=== PATIENT | female | born 1980 | race Caucasian/White ===

== ENCOUNTER 2021-11-29 13:08 | Outpatient (CLI) | payer OTHER, SELFPAY ==
--- OUTSIDE RECORDS SUMMARY | 2021-11-29 13:10 | XMS_ITS | Encounter Summary ---
:1980 Author Organization [facility] Address [address] [place] [address] Care Team Providers Name Role Phone Unavailable Primary Care Provider Unavailable Encounter Details Date Type Department Care Team Description 12/19/2013 Hospital Encounter HX RST LABOR&DELIVERY Hank Conley NURS M.D. [address] [place] [address] (Wo rk) Social History Tobacco Use Types Packs/Day Years Used Date Smoking Tobacco: Never Assessed Sex Assigned at Date Recorded Not on file documented as of this encounter Plan of Treatment Not on filedocumented as of this encounter Visit Diagnoses Not on filedocumented in this encounter
--- OUTSIDE RECORDS SUMMARY | 2021-11-29 13:10 | XMS_ITS | Encounter Summary ---
:1980 Author Organization [facility] Address [address] [place] [address] Care Team Providers Name Role Phone Unavailable Primary Care Provider Unavailable Encounter Details Date Type Department Care Team Description 06/16/2020 Admin Visit Department of Family Medicine in [place], [place] [address] [place], [place] [address] Social History Tobacco Use Types Packs/Day Years Used Date Smoking Tobacco: Never Sex Assigned at Date Recorded Not on file documented as of this encounter Plan of Treatment Not on filedocumented as of this encounter Visit Diagnoses Not on filedocumented in this encounter Additional Health Concerns Infection Onset Date Last Indicated Resolved Time COVID19 Pending 06/16/2020 06/16/2020 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
--- OUTSIDE RECORDS SUMMARY | 2021-11-29 13:10 | XMS_ITS | Encounter Summary ---
:1980 Author Organization [facility] Address [address] [place] [address] Care Team Providers Name Role Phone Unavailable Primary Care Provider Unavailable Encounter Details Date Type Department Care Team Description 11/17/2013 Hospital Encounter HX NO MAPPING Social History Tobacco Use Types Packs/Day Years Used Date Smoking Tobacco: Never Assessed Sex Assigned at Date Recorded Not on file documented as of this encounter Plan of Treatment Not on filedocumented as of this encounter Visit Diagnoses Not on filedocumented in this encounter
--- OUTSIDE RECORDS SUMMARY | 2021-11-29 13:10 | XMS_ITS | Encounter Summary ---
:1980 Author Organization [facility] Address [address] [place] [address] Care Team Providers Name Role Phone Unavailable Primary Care Provider Unavailable Reason for Visit Reason Comments COVID Nurse Line Encounter Details Date Type Department Care Team Description 06/16/2020 Clinical Communication Division of Michaelle Ball CO VID Nurse Angella [facility] R.N. [facility] [address] [place] [address] [place] [phone] [address] [facility] ([place]) [place] [address] Social History Tobacco Use Types Packs/Day Years Used Date Smoking Tobacco: Never Sex Assigned at Date Recorded Not on file documented as of this encounter Miscellaneous Notes Telephone Encounter - Michaelle Ball, R.N. - 06/16/2020 8:36 AM CST COVID-19 Nurse Line Screening ASSESSMENT Region Select appropriate region: : [place] Age Pathway Select approprite pathway: : Adult Have you had close contact* with a person who has a LABORATORY CONFIRMED case of COVID-19 in the past 14 days?: No (Continue Screening) In the last 48 hours, have you had a fever* OR symptoms that are unrelated to a preexisting illness?: New headache, New sore throat(Head congestion and runny nose.) Have you received a COVID-19 vaccine in the last 72 hours? : No vaccine received (Continue Screening) Do you have any of the following urgent symptoms?: No urgent symptoms noted (Continue Screening) Have you tested positive for COVID-19 in the last 45 days?: No (Continue Screening) Are ALL the following criteria met: age between 18 to 75 yrs, main symptom is a sore throat with duration of 24 hrs to 7 days, onset of sore throat not associated with new upper respiratory symptoms*? : No, COVID testing is recommended (End Screening) Symptom Onset Date of symptom onset: 06/15/20 Testing Recommendation Endpoint Is testing recommended? : Recommended to test PLAN Endpoint recommendation: Screening positive, testing indicated, advised to be swabbed for COVID-19 Only , sent to [facility] located at [address] [facility]. You need to call [phone] between 8am to 6pm M-F to schedule an appointment time. Testing hours are M-F 9 am to 4 pm. When you arrive, remain in your vehicle and check-in by scanning the QR code posted on signage and completing theonline form. If you do not have a phone, ring the doorbell for service. Entrance is under the blue awning. and Please avoid using public transportation per CDC recommendation. If you do not have personal transportation please self-quarantine until a personal transportation option is available. Care Points: -Wash hands frequently with soap and water for at least 20 seconds -If soap and water are not available, use a hand childcare center administrator -Avoid touching your eyes, nose and mouth. -Clean and disinfect high-touch surfaces routinely. -Wear a mask over your nose and mouth. A cloth face cover is not a substitute for social distancing -Continue to keep about 6 feet between yourself and others. -Avoid public areas and public transportation. -Find new ways to connect with family and friends, get support and share feelings. -Seek emergent care if any of the following occur Trouble breathing Bluish lips or face Persistent pain or pressure in the chest New confusion or inability to rouse. -Notify your regular care provider of any new or worsening symptoms. Symptomatic Carepoints: Separate yourself from others and stay in a specific sick room if able. Avoid sharing personal or household items. Rest. Hydrate. Take Acetaminophen/Ibuprofen as needed to control fever and muscles aches. Use over the counter medications as needed for other symptoms. Education: Patient/caregiver able to teach back Patient agreeable to plan of care: Yes The following references were used: [facility] novel coronavirus (COVID- 19) resources Nursing judgement COVID-19 Post Vaccine Symptoms Screening ASSESSMENT COVID Vaccine Symptom Screen Which vaccine did you receive?: Moderna COVID 19 Vaccine What date did you receive the vaccine?: 06/10/20 Was this your first or second dose?: First Dose How long after the vaccine did you start experiencing symptoms? : Greater than 72 hours Urgent Symptom Review Possible Anaphylaxis*: No Vasovagal symptoms*: No Shortness of breath : No Facial weakness and/or asymetry : No Seizure: No Difficulty moving arms and/or legs : No Any of the following: Hives, rash, pruritus, lightheadness, wheezing, stridor and/or tachycardia: No COVID-19 Infection Symptoms Do any of the following apply: sore throat, cough, fever, headache, muscle pain, chills, nausea and/or vomiting?: Yes, greater than 72 hour duration (Screen for COVID/Strep Testing Recommended) Other Symptoms Do any of the following apply: injection site pain, redness or swelling, joint pain, or fatigue? : No Lymphadenopathy: No Diarrhea : No PLAN Endpoint Final Recommendations Recommendation : Screen for COVID and/or Strep testing if not already completed. Care Points: For pain relief, take acetaminophen, ibuprofen, or naproxen. Use the lowest amount thatmakes your pain feel better. , To reduce discomfort from Fever; drink plenty of fluids and dress lightly, With most COVID-19 vaccines, you will need 2 shots in order for them to work. Get the second shot even if you have side effects after the first shot, unless a vaccination provider or your doctor tells you not to get a second shot. , Call back if symptoms worsen. and If these symptoms do not resolve within 7 days, we recommend an appointment with your PCP. Education: Patient/caregiver able to teach back Patient agreeable to plan of care: Yes The following references were used: Moderna Vaccine Information Statement: [email or web address] [employer] CHIPPER documented in this encounter Plan of Treatment Not on filedocumented as of this encounter Visit Diagnoses Not on filedocumented in this encounter
--- OUTSIDE RECORDS SUMMARY | 2021-11-29 13:10 | XMS_ITS | Encounter Summary ---
:1980 Author Organization [facility] Address [address] [place] [address] Care Team Providers Name Role Phone Unavailable Primary Care Provider Unavailable Encounter Details Date Type Department Care Team Description 12/19/2013 Hospital Encounter HX NO MAPPING Melva Segura, R.N. [address] [place], [place] [phone] Social History Tobacco Use Types Packs/Day Years Used Date Smoking Tobacco: Never Assessed Sex Assigned at Date Recorded Not on file documented as of this encounter Plan of Treatment Not on filedocumented as of this encounter Visit Diagnoses Not on filedocumented in this encounter
--- OUTSIDE RECORDS SUMMARY | 2021-11-29 13:10 | XMS_ITS | Encounter Summary ---
:1980 Author Organization [facility] Address [address] [place] [address] Care Team Providers Name Role Phone Unavailable Primary Care Provider Unavailable Encounter Details Date Type Department Care Team Description 12/19/2013 Hospital Encounter HX RST LABOR&DELIVERY Melva Segura, NURS R.N. [address] [place] [address] Social History Tobacco Use Types Packs/Day Years Used Date Smoking Tobacco: Never Assessed Sex Assigned at Date Recorded Not on file documented as of this encounter Plan of Treatment Not on filedocumented as of this encounter Visit Diagnoses Not on filedocumented in this encounter
--- OUTSIDE RECORDS SUMMARY | 2021-11-29 13:10 | XMS_ITS | Encounter Summary ---
:1980 Author Organization [facility] Address [address] [place] [address] Care Team Providers Name Role Phone Unavailable Primary Care Provider Unavailable Reason for Visit Reason Comments TRACY Nurse Line Encounter Details Date Type Department Care Team Description 03/31/2020 Clinical Communication Division of TRACY Haddad Nurse Angella [facility] Internal Antonio Grover [facility] [phone] [place] (Work) [place], [place] [address] [place] [address] Social History Tobacco Use Types Packs/Day Years Used Date Smoking Tobacco: Never Sex Assigned at Date Recorded Not on file documented as of this encounter Miscellaneous Notes Telephone Encounter - Mari Haddad R.N. 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 : No complications noted (Continue Screening) Are all the following symptoms present: temperature of 100.0 degrees Fahrenheit or greater, muscle aches or headache AND a cough?: No all symptoms are not present (End Screening) Symptom Onset Date of symptom onset: 03/29/20 Testing Recommendation Endpoint Is testing recommended? : Recommended to test PLAN Endpoint recommendation: Screening positive, testing indicated, advised to be swabbed for COVID-19 Only - patient refuses other testing. , sent to [facility] located at [address] [facility]. When you arrive in the parking lot, using your camera smartphone scan the QR code on the sign and fill outthe online form. If you do not have a smartphone or working camera, please ring the doorbell outsidethe building for service. Testing hours are M-F 9 am to 4 pm and Sat-Sun 9 am to 12:30 pm. and Please avoid using public transportation per CDC recommendation. If you do not have personal transportation please self- quarantine until a personal transportation option is available. Care Points: -Wash hands frequently with soap and water for at least 20 seconds -If soap and water are not available, use a hand court crier -Avoid touching your eyes, nose and mouth. [...] care: Yes The following references were used: [facility] novel coronavirus (COVID- 19) resources CDC web site https://www.cdc.gov/coronavirus/2019-ncov/summary.html Nursing judgement H INSPECTOR documented in this encounter Plan of Treatment Not on filedocumented as of this encounter Visit Diagnoses Not on filedocumented in this encounter
--- OUTSIDE RECORDS SUMMARY | 2021-11-29 13:10 | XMS_ITS | Encounter Summary ---
:1980 Author Organization [facility] Address [address] [place] [address] Care Team Providers Name Role Phone Unavailable Primary Care Provider Unavailable Encounter Details Date Type Department Care Team Description 11/17/2013 - Hospital Encounter HX RST UNIT 3-2 11/19/2013 OBSTETRICS Social History Tobacco Use Types Packs/Day Years Used Date Smoking Tobacco: Never Assessed Sex Assigned at Date Recorded Not on file documented as of this encounter Last Filed Vital Signs Vital Sign Reading Time Taken Comments Blood Pressure 111/69 11/19/2013 7:55 AM CDT Pulse 65 11/19/2013 7:55 AM CDT Temperature - - Respiratory Rate 16 11/19/2013 7:55 AM CDT Oxygen Saturation - - Inhaled Oxygen - - Concentration Weight 77.7 kg (171 lb 4.8 11/19/2013 7:55 AM oz) CDT Height 170 cm (5' 6.93) 11/17/2013 2:59 AM Vital si gn result CDT from [facility]. Body Mass Index 26.89 11/17/2013 2:59 AM CDT documented in this encounter Plan of Treatment Not on filedocumented as of this encounter Procedures Procedure Name Priority Date/Time Associated Comments Diagnosis HXGENERAL PATHOLOGY Routine 11/18/2013 1:13 PM Re sults for this REPORT CDT procedure are i n the results section. CONFIRMED DRUG ABUSE Routine 11/17/2013 2:16 AM R esults for this PANEL 9, U CDT procedure are i n the results section. ADULTERANTS SURVEY, U Routine 11/17/2013 2:16 AM Results for this CDT procedure are i n the results section. documented in this encounter Results Hx general Pathology Report (11/18/2013 1:13 PM CDT) Specimen Anatomical Collection Method Collection Time Receive d Time (Source) Location / / Volume Laterality 11/18/2013 1:13 PM 4 1:13 CDT PM CDT Narrative [facility] - 11/18/2013 1:13 PM CDT ??11/17/2013 General Biopsy ? ([id number]) ? Requested By: Jhoana Mujica M.D. ??[phone] [id number] ? SLIDE DISPOSITION: ? DIAGNOSIS: ?? A. ? Ness placenta, 345 grams, appropriate for gestational age of 30 2/7 weeks. ??The umbilical co rd shows three blood vessels. ?? The villi are early 3rd trimester and a ppropriate for gestational age, and show no diagnostic abnormaliti es There is acute chorioamnionitis and acute funisitis (S tage 2). The membranes show pigment-laden macrophages, consist ent with meconium deposition. ? 02/24/2014 13:11 Interpreted by: Onelia Larsen M.D. [id number] Report electronically signed by Onelia Larsen M.D. Transcribed by: sharla 02/23/2014 10:57:39 ? TISSUE DESCRIPTION: [id number] A1A2A3 A. ?? Received fresh labeled with the p lula's name and as placenta is a ness placenta: ?? Disk Condition: Fixed and intact Trimmed weight: 345 grams Three dimension: 17.1 x 17.0 x 2.5 cm Shape: Round ?? Umbilical Cord Length: 32.5 cm Diameter: 1.2 cm Number of vessels: 3 Appearance: Unremarkable and vessels in tact Cord insertion: Eccentric ?? Surface Color: Blue-argueta Intact vessels: Yes. ?? Membranes Color: Smith-pink Transparency: Transparent with focal op acification ?? Consistency: Normal Membrane insertion: Marginal ?? Maternal surface Condition: Intact and complete ?? Placental Parenchyma Thickness: 2.4 cm Sectioning the placental disk reveals: ??No gross lesions or abnormalities. ?? Airline Mechanic sections are submitted a s follows: A1-umbilical cord/membranes A2-placenta A3-placenta ? Grossed by RFS. ?? Part A: ??Placenta ?1 cord/membrane ?2 placenta ?3 placenta ?? Placenta Path ? Procedure Note 07/06/2017 11/17/2013 General Biopsy ([id number]) Requested By: Jhoana Mujica M.D. [phone] SLIDE DISPOSITION: DIAGNOSIS: A. Ness placenta, 345 grams, appro priate for gestational age of 30 2/7 weeks. The umbilical cord shows three blood vessels. The villi are early 3rd trimester and a ppropriate for gestational age, and show no diagnostic abnormaliti es There is acute chorioamnionitis and acute funisitis (S tage 2). The membranes show pigment-laden macrophages, consist ent with meconium deposition. 02/24/2014 13:11 Interpreted by: Onelia Larsen M.D. [id number] Report electronically signed by Onelia Larsen M.D. Transcribed by: sharla 02/23/2014 10:57:39 TISSUE DESCRIPTION: [id number] A1A2A3 A. Received fresh labeled with the art ent's name and as placenta is a ness placenta: Disk Condition: Fixed and intact Trimmed weight: 345 grams Three dimension: 17.1 x 17.0 x 2.5 cm Shape: Round Umbilical Cord Length: 32.5 cm Diameter: 1.2 cm Number of vessels: 3 Appearance: Unremarkable and vessels in tact Cord insertion: Eccentric Surface Color: Blue-argueta Intact vessels: Yes. Membranes Color: Smith-pink Transparency: Transparent with focal op acification Consistency: Normal Membrane insertion: Marginal Maternal surface Condition: Intact and complete Placental Parenchyma Thickness: 2.4 cm Sectioning the placental disk reveals: No gross lesions or abnormalities. Airline Mechanic sections are submitted a s follows: A1-umbilical cord/membranes A2-placenta A3-placenta Grossed by RFS. Part A: Placenta 1 cord/membrane 2 placenta 3 placenta Placenta Path Jhoana Mujica M.D. LAB PATHOLOGY/CYTOLOGY ORDER JOSE DANIEL Performing Organization Address City/State/ZIP Code Phon e Number [facility] - [address] [place], [place] [address] [facility] Adulterants Survey, Urine (11/17/2013 2:16 AM CDT) [facility] M[facility]i Method Time Signature Creatinine, U 23.8 MG/DL [facility] (w/ADULT) LABORATORIES - [facility] Specific 1.010 [facility] [place] [facility] - [facility] pH 6.7 [facility] Oxidants Negative [facility] Specimen Anatomical Collection Method Collection Time Receive d Time (Source) Location / / Volume Laterality 11/17/2013 2:16 AM 4 2:16 CDT AM CDT Jhoana Mujica M.D. LAB URINE ORDERABLES Performing Organization Address City/State/ZIP Code Phon e Number [facility] - [address] [place], [place] [address] [facility] Drug Abuse Survey with Confirmation, Panel 9, Urine (11/17/2013 2:16 AM CDT) Component Value Ref Test Analysis Performed At [facility] Miroi Range Method Time Signature Barbiturates Screen Negative Cutoff: [facility] 200 LABORATORIES - NG/ML [facility] Benzodiazepines Negative Cutoff: [facility] 200 LABORATORIES - NG/ML [facility] Cocaine, Quant Negative Cutoff: [facility] 150 LABORATORIES - NG/ML [facility] Methadone Metabolite Negative Cutoff: [facility] 300 LABORATORIES - NG/ML [facility] Propoxyphene, U Negative Cutoff: [facility] 300 LABORATORIES - NG/ML [facility] Tetrahydrocannabinol Negative Cutoff: [facility] 20 NG/ML LABORATORIES - [facility] Alcohol Negative Cutoff: [facility] 30 MG/DL LABORATORIES - [facility] Amphetamines, U Negative Cutoff: [facility] 500 LABORATORIES - NG/ML [facility] Opiates Negative Cutoff: [facility] 300 LABORATORIES - NG/ML [facility] Phencyclidine Negative Cutoff: [facility] 25 NG/ML [facility] Chain of Custody . [facility] Comment: Chain of custody documents are on file i n the [facility]. ? ADDITIONAL INFORMATIO N ? This report is intended for use in clini syeda monitoring or management of ? patients. ??It is not intended for use i n employment-related testing. ? Specimen Anatomical Collection Method Collection Time Receive d Time (Source) Location / / Volume Laterality 11/17/2013 2:16 AM 4 2:16 CDT AM CDT Jhoana Mujica M.D. LAB URINE ORDERABLES Performing Organization Address City/State/ZIP Code Phon e Number [facility] - [address] [place], [place] [address] [facility] documented in this encounter Visit Diagnoses Not on filedocumented in this encounter
--- OUTSIDE RECORDS SUMMARY | 2021-11-29 13:10 | XMS_ITS | Clinical Summary ---
:1980 Author Organization [facility] Address [address] [place] [address] Care Team Providers Name Role Phone Unavailable Primary Care Provider Unavailable Source Comments Patient records contain information from all sites at [facility]. For routine questions regarding patient records, call [phone] during business hours, M-F 8:00 AM - 5:00 PM Central Time. 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 Pulse 60 06/03/2015 3:49 PM Vital sign result BOWLING ALLEY MANAGER from [facility]. Temperature - - Respiratory Rate 20 06/03/2015 3:49 PM Vital sig n result BOWLING ALLEY MANAGER from [facility]. Oxygen Saturation - - Inhaled Oxygen - - Concentration Weight 68.5 kg (150 lb 15.9 06/03/2015 3:49 PM Vital sign result oz) BOWLING ALLEY MANAGER from [facility]. Height 175.2 cm (5' 8.98) 06/03/2015 3:49 PM Vital sign result BOWLING ALLEY MANAGER from [facility]. Body Mass Index 22.31 06/03/2015 3:49 PM BOWLING ALLEY MANAGER Plan of Treatment Health Maintenance Due Date Last Done Comments Cervical Cancer Screening 1980 Fasting Lipid Panel 1980 HIV Screening 1980 Hepatitis B Vaccines (1 of 1980 3 - 3-dose series) Hepatitis C Screening 1980 COVID-19 Vaccine (3 - 12/06/2020 07/06/2020, 06/10/2020 Booster for Moderna series) Depression Screening 04/15/2021 (Annual PHQ-2) Influenza Vaccine (#1) 2022 02/14/2021, 01/25/2020, 02/13/2019, Additional history exists DTaP,Tdap,and Td Vaccines 06/28/2027 06/27/2017 (2 - Td or Tdap) Pneumococcal vaccine (0-64 Aged Out No lo nger eligible years) based on patient 's age to complete this topic Insurance Payer Benefit Plan / Subscriber ID Effective Phone Address T ype Group Dates PREFERREDONE PREFERREDONE [id number] 2019-Pre [phone] PPO ADMINISTRATIVE ADMINISTRATIVE sent [phone] SERVICES SERVICES [place] [id number]
--- OUTSIDE RECORDS SUMMARY | 2021-11-29 13:10 | XMS_ITS | Encounter Summary ---
:1980 Author Organization [facility] Address [address] [place] [address] Care Team Providers Name Role Phone Unavailable Primary Care Provider Unavailable Reason for Visit Reason Comments COVID Inquiry Encounter Details Date Type Department Care Team Description 06/16/2020 Clinical Communication Central Appointment PreschedTRACY kaufman Inquiry Office in [facility] [address] [place], [place] [id number] Social History Tobacco Use Types Packs/Day Years Used Date Smoking Tobacco: Never Sex Assigned at Date Recorded Not on file documented as of this encounter Miscellaneous Notes Telephone Encounter - Chantell Case - 06/16/2020 8:32 AM CST What is the purpose of the call?: Symptomatic (Calling PCP Office) Calling [facility] What region is the patient calling from? : [place] Have you tested positive for COVID-19 in the last 20 days? : No In the past 14 days are any of the following symptoms new to you and not related to an existing health condition?: New headache, New myalgias (muscle aches) Because of symptoms, transfer patient to: : [place] COVID Nurse Line (End Screening) Symptom Onset Date of symptom onset: 06/15/20 Testing Recommendation Endpoint Is testing recommended? : Transferred to nursing call line Plan: Endpoint recommendation: Transferred to Nursing/COVID Line/Care Team *Reminder if sending patient for testing in [facility], route encounter to the correct testing pool. WORKER HELPER documented in this encounter Plan of Treatment Not on filedocumented as of this encounter Visit Diagnoses Not on filedocumented in this encounter
--- NOTE | 2021-11-29 13:20 | CRLHL7_ITS ---
For Patients: As a result of the Century Cures Act, medical imaging exams and procedure reports are released immediately into your electronic medical record. You may view this report before your referring provider. If you have questions, please contact your health care provider. BILATERAL SCREENING MAMMOGRAM WITH COMPUTER-AIDED DETECTION AND TOMOSYNTHESIS TECHNIQUE: CC and MLO views were obtained. These mammographic images have been obtained using full-field digital technique. These mammographic images were interpreted with the benefit of computer-aided detection. Breast Tomosynthesis was used in this interpretation. COMPARISON FILM: 10/20/20, 10/16/19, 07/14/18. FINDINGS: The breasts are extremely dense, which lowers the sensitivity of mammography IMPRESSION: There is no radiographic evidence for malignancy. ASSESSMENT: BI-RADS Category 1: Negative RECOMMENDATION: Routine screening mammogram in 1 year. A lay language report of this examination will be provided to the patient. Yg Costa M.D. Diagnostic Radiologist [email or web address] LILY/Dictated by: Yg Costa MD @ 11/30/2021 8:44:00 AM (Electronically Signed)
== END 2021-11-29 13:09 | disposition home or self-care (01) ==
LOC: MAMMO 13:08
PROVIDERS: PCP Family Medicine; Visit Provider Registered Nurse
DX: Z12.31 Encounter for screening mammogram for malignant neoplasm of breast (principal); R92.2 Inconclusive mammogram
CPT/HCPCS: 77063; 77067

== ENCOUNTER 2022-02-19 16:30 | Outpatient (RCR) | payer OTHER, SELFPAY | END 2022-05-11 14:56 | disposition home or self-care (01) | PROVIDERS: PCP Family Medicine; Visit Provider Registered Nurse | DX: M25.559 Pain in unspecified hip (principal); Z51.89 Encounter for other specified aftercare | CPT/HCPCS: 97110; 97140; 97161 ==

== ENCOUNTER 2023-01-15 15:17 | Outpatient (CLI) | payer OTHER, SELFPAY ==
--- NOTE | 2023-01-15 15:40 | CRLHL7_ITS ---
For Patients: As a result of the Century Cures Act, medical imaging exams and procedure reports are released immediately into your electronic medical record. You may view this report before your referring provider. If you have questions, please contact your health care provider. BILATERAL SCREENING MAMMOGRAM WITH COMPUTER-AIDED DETECTION AND TOMOSYNTHESIS TECHNIQUE: CC and MLO views were obtained. These mammographic images have been obtained using full-field digital technique. These mammographic images were interpreted with the benefit of computer-aided detection. Breast Tomosynthesis was used in this interpretation. COMPARISON FILM: 10/2020, 11/29/21, 10/16/19. FINDINGS: The breasts are heterogeneously dense, which may obscure small masses IMPRESSION: There is no radiographic evidence for malignancy. ASSESSMENT: BI-RADS Category 1: Negative RECOMMENDATION: Routine screening mammogram in 1 year. A lay language report of this examination will be provided to the patient. Yg Costa M.D. Diagnostic Radiologist [email or web address] LILY/Dictated by: Yg Costa MD @ 01/16/2023 9:12:00 AM (Electronically Signed)
== END 2023-01-15 15:18 | disposition home or self-care (01) ==
LOC: MAMMO 15:18
PROVIDERS: PCP Family Medicine; Visit Provider Physician Assistant
DX: Z12.31 Encounter for screening mammogram for malignant neoplasm of breast (principal); R92.2 Inconclusive mammogram
CPT/HCPCS: 77063; 77067

== ENCOUNTER 2023-12-13 10:50 | Outpatient (CLI) | payer BC, SELFPAY | END 2023-12-13 10:51 | disposition home or self-care (01) | PROVIDERS: PCP Family Medicine; Visit Provider Physician Assistant | DX: Z01.419 Encounter for gynecological examination (general) (routine) without abnormal findings (principal); Z12.4 Encounter for screening for malignant neoplasm of cervix | CPT/HCPCS: 87624 ==

== ENCOUNTER 2024-01-17 14:57 | Outpatient (CLI) | payer BC, SELFPAY ==
--- NOTE | 2024-01-17 15:20 | CRLHL7_ITS ---
For Patients: As a result of the Century Cures Act, medical imaging exams and procedure reports are released immediately into your electronic medical record. You may view this report before your referring provider. If you have questions, please contact your health care provider. BILATERAL SCREENING MAMMOGRAM WITH COMPUTER-AIDED DETECTION AND TOMOSYNTHESIS TECHNIQUE: CC and MLO views were obtained. These mammographic images have been obtained using full-field digital technique. These mammographic images were interpreted with the benefit of computer-aided detection. Breast tomosynthesis was used in this interpretation. COMPARISON FILM: 01/15/2023, 11/29/2021, 10/20/2020. FINDINGS: The breasts are extremely dense, which lowers the sensitivity of mammography. IMPRESSION: There is no radiographic evidence for malignancy. ASSESSMENT: BI-RADS Category 2: Benign RECOMMENDATION: Routine screening mammogram in 1 year. A lay language report of this examination will be provided to the patient. YG HARDEN M.D. Diagnostic Radiologist [email or web address] Transcribed: 12:[address]/Dictated by: Yg Harden MD @ 01/20/2024 10:56:00 AM (Electronically Signed)
== END 2024-01-17 14:58 | disposition home or self-care (01) ==
LOC: MAMMO 14:58
PROVIDERS: PCP Family Medicine; Visit Provider Family Medicine
DX: Z12.31 Encounter for screening mammogram for malignant neoplasm of breast (principal); R92.343 Mammographic extreme density, bilateral breasts
CPT/HCPCS: 77063; 77067

== ENCOUNTER 2024-08-05 09:06 | Outpatient (CLI) | payer BC, SELFPAY ==
--- NOTE | 2024-08-05 09:15 | CRLHL7_ITS ---
For Patients: As a result of the Century Cures Act, medical imaging exams and procedure reports are released immediately into your electronic medical record. You may view this report before your referring provider. If you have questions, please contact your health care provider. BILATERAL BREAST MRI WITHOUT AND WITH GADOLINIUM CLINICAL HISTORY: Screening in high-risk INDICATION FOR BREAST MRI: (1) Staging of newly diagnosed breast cancer and screening of contralateral breast. Regional lymph nodes will also be assessed. (2) Screening breast MRI in this high-risk woman. (3) Problem-solving breast MRI. (4) Other ??? dictate. COMPARISON STUDIES: Mammogram 01/15/2023 CONTRAST: 15 mL Dotarem TECHNIQUE: The patient was positioned prone using a breast coil. Multiple imaging sequences were obtained using 1-1.5 mm thick slices with no gap. The image sequences include T2-weighted STIR in the axial plane, T1-weighted nonfat-saturated gradient echo in the axial plane, pre- and post-contrast T1-weighted FLASH 3D with fat suppression in the axial plane, and T1-weighted FLASH high resolution 3D with fat suppression in the sagittal plane. Image post-processing was performed on a [employer] workstation. Complex 3D rendering including maximum intensity projections (MIPS) and volumetric renderings were obtained to optimize visualization of the extent of pathology and relationship to the nipple, skin, and chest wall. This aids in determining feasibility of breast conservation surgery. Subtraction, multiplanar reconstruction, mean curve determination, and angiogenesis mapping were also performed. The study was technically adequate. FINDINGS: Amount of Fibroglandular Tissue: Heterogeneously dense Breast Background Enhancement: Minimal. Mild. Moderate. Marked. RIGHT/left breast: Bilateral cysts in the breasts. No suspicious enhancement bilaterally. Lymph Nodes: No abnormal axillary lymph nodes. IMPRESSIONS AND RECOMMENDATIONS: No suspicious enhancement in either breast. No morphologically abnormal axillary lymph nodes. Recommend continuing with yearly screening mammography screening MRIs are felt to be indicated recommend that these be offset at six-month intervals with screening mammograms. BI-RADS Category 2 Dictated by Donna Soriano MD @ 08/07/2024 11:29:36 AM (Electronically Signed)
== END 2024-08-05 09:07 | disposition home or self-care (01) ==
LOC: MRI 09:08
PROVIDERS: PCP Family Medicine; Visit Provider Surgery
DX: Z12.39 Encounter for other screening for malignant neoplasm of breast (principal); N60.01 Solitary cyst of right breast; N60.02 Solitary cyst of left breast; Z91.89 Other specified personal risk factors, not elsewhere classified
CPT/HCPCS: 77049; A9575

== ENCOUNTER 2025-01-05 09:02 | Outpatient (CLI) | payer BC, SELFPAY | END 2025-01-05 09:03 | disposition home or self-care (01) | PROVIDERS: PCP Family Medicine; Visit Provider Physician Assistant | DX: R42 Dizziness and giddiness (principal); Z13.9 Encounter for screening, unspecified | CPT/HCPCS: 80053; 80061; 84443 ==

== ENCOUNTER 2025-02-15 12:37 | Outpatient (CLI) | payer BC, SELFPAY ==
--- NOTE | 2025-02-15 13:00 | CRLHL7_ITS ---
For Patients: As a result of the Century Cures Act, medical imaging exams and procedure reports are released immediately into your electronic medical record. You may view this report before your referring provider. If you have questions, please contact your health care provider. INDICATION: BILATERAL SCREENING MAMMOGRAM, ASYMPTOMATIC 44 Y/O FEMALE COMPARISON: 01/17/2024, 01/15/2023, 11/29/2021 TECHNIQUE: Digital mammogram in CC and MLO projections including computer-aided detection (CAD) and tomosynthesis. BREAST COMPOSITION: The breasts are extremely dense, which lowers the sensitivity of mammography. FINDINGS: No suspicious findings. ASSESSMENT: BI-RADS 1 Negative RECOMMENDATION: Annual screening mammogram. A lay language report of this examination will be provided to the patient. Dictated by: Yg Costa MD @ 02/16/2025 09:15:10 (Electronically Signed)
== END 2025-02-15 12:38 | disposition home or self-care (01) ==
LOC: MAMMO 12:37
PROVIDERS: PCP Family Medicine; Visit Provider Family Medicine
DX: Z12.31 Encounter for screening mammogram for malignant neoplasm of breast (principal); R92.343 Mammographic extreme density, bilateral breasts
CPT/HCPCS: 77063; 77067